=== PATIENT | female | born 1930 | race Asian ===

== ENCOUNTER 2017-07-05 01:30 | Emergency (ER) | payer MEDICARE, MEDICAID ==
[~2017-07-05] VITALS: Ht 149.9 cm; Wt 40.8 kg
[~2017-07-05 01:30] MED LIST: NKM; ZITHROMAX250 MG ORAL; [UNRECOGNIZED DRUG - REMARK] PO
[2017-07-05] MEDS ORDERED: FUROSEMIDE20 M1 ORAL (01:39)
[2017-07-05] MEDS ORDERED: AMLODIPINE BESYL5 MG ORAL (01:39)
[2017-07-05] MEDS ORDERED: METFORMIN HCL500 M1 ORAL (01:39)
[2017-07-05] MEDS ORDERED: Morphine Sulfate 4mg/ml Inj IVP ONE (01:45)
--- NOTE | 2017-07-05 01:50 | Emergency Room Report ---
History of Present Illness General Chief Complaint: Upper Extremity Injury Source: Family Member Present Illness HPI Is an 86-year-old Maori speaking woman with a history dementia. She was brought in with left wrist trauma. According to family they were asleep and when they heard her fell. It appeared that she try to get up to go the bathroom and fell. She complaining of left wrist pain. No head injury. There is deformity to the left wrist. Denies any other complaint. Allergies: Coded Allergies: AZITHROMYCIN (Verified Allergy, Severe, ANGIOEDEMA, FACIAL SWELLING, ) Patient History Past Medical History: see triage record, old chart reviewed, HTN Past Surgical History: other Pertinent Family History: none Social History: Denies: smoking Now: No Immunizations: other Reviewed Nursing Documentation: PMH: Agreed; PSxH: Agreed Nursing Documentation-PMH Hx Cardiac Problems: Yes Hx Hypertension: Yes Hx Diabetes: Yes Hx Cancer: No Hx Gastrointestinal Problems: No Hx Neurological Problems: No Review of Systems Eye: Denies: eye pain, blurred vision ENT: Denies: ear pain, nose congestion, throat swelling Respiratory: Denies: cough, shortness of breath Cardiovascular: Denies: chest pain, palpitations Gastrointestinal: Denies: abdominal pain, diarrhea, nausea, vomiting Musculoskeletal: Reports: joint pain; Denies: back pain Skin: Denies: rash Neurological: Denies: headache, numbness Endocrine: Denies: increased thirst, increased urine Hematologic/Lymphatic: Denies: easy bruising All Other Systems: negative except mentioned in HPI Physical Exam Vital Signs Date Time Temp Pulse Resp B/P (MAP) Pulse Ox O2 Delivery O2 Flow Rate FiO2 07/05/17 01:35 96.6 74 16 166/64 100 Room Air 96.6 vitals with high blood pressure Sp02 EP Interpretation: reviewed, normal General Appearance: well appearing, no apparent distress, alert Head: normocephalic, atraumatic Eyes: bilateral eye PERRL, bilateral eye EOMI ENT: hearing grossly normal, normal pharynx Neck: full range of motion, supple, no meningismus Respiratory: chest non-tender, lungs clear, normal breath sounds Cardiovascular #1: regular rate, rhythm, no murmur Gastrointestinal: normal bowel sounds, non tender, no mass, no organomegaly, no bruit, non-distended Musculoskeletal: back normal, gait/station normal, other - left wrist: Dinner fork deformity. Pulses normal. There is scabbing to the wrist. Family said that this is old. Patient been picking at her wound. Neurologic: alert Psychiatric: mood/affect normal Skin: warm/dry Procedures Splinting Splinting : Consent: Verbal Location: left wrist Hand-Made Type: plaster Splint: sugar-tong Pre-Proc Neuro Vasc Exam: normal Post-Proc Neuro Vasc Exam: normal Patient Tolerated: Well Complications: None Progress I did a hematoma block with 1% lidocaine without epinephrine. Injected 9 mL. I reduce the fracture. Patient tolerated procedure without a problem. Sugar tong was placed. Medical Decision Making Diagnostic Impression: Primary Impression: Distal radius fracture, left Qualified Codes: S52.532A - Colles' fracture of left radius, initial encounter for closed fracture ER Course Patient with a distal radius fracture. No open fracture. no syncope. We'll discharge home. Other X-Ray Diagnostic Results Other X-Ray Diagnostic Results #1: X-Ray ordered: left wrist x-rays # of Views/Limited Vs Complete: 3 View Indication: Pain EP Interpretation: Yes Interpretation: no dislocation, no soft tissue swelling, other - intra- articular distal radius frx with displacement. Impression: Other - distal radius frx Electronically Signed by: Eagle Fisher MD Other X-Ray Diagnostic Results #2: X-Ray ordered: left wrist x-rays, post reduction # of Views/Limited Vs Complete: 3 View Indication: Pain EP Interpretation: Yes Interpretation: no dislocation, no soft tissue swelling, other - better alignment. Impression: Other - Better alignment of distal radius frx Electronically Signed by: Eagle Fisher MD Last Vital Signs Date Time Temp Pulse Resp B/P (MAP) Pulse Ox O2 Delivery O2 Flow Rate FiO2 07/05/17 01:35 96.6 74 16 166/64 100 Room Air 96.6 Status: improved Disposition: HOME, SELF-CARE Condition: Stable Scripts Hydrocodone/Acetaminophen 5-325* (HYDROCODONE/ACETAMINOPHEN 5-325*) 1 Each Tablet 1 TAB ORAL Q6H PRN for For Pain, #20 TAB 0 Refills Prov: EAGLE FISHER M.D. 07/05/17 Additional Instructions: Follow up with your doctor in 2 days. Return if symptoms worsen. Elevate arm. Ice pack to area. EAGLE FISHER M.D. July 05, 2017 01:50
--- NOTE | 2017-07-05 02:32 | Diagnostic Imaging Report ---
EXAM: XR Left Wrist CLINICAL HISTORY: TRAUMA TECHNIQUE: X-ray left wrist. COMPARISON: No relevant prior studies available. FINDINGS/IMPRESSION: Fracture distal radius. Soft tissue swelling.
[2017-07-05 03:18] VITALS: BP 141/83
[2017-07-05] MEDS ORDERED: HYDROCODON-ACE1 EA15 ORAL (03:18)
[2017-07-05 03:30] VITALS: BP 141/83
--- NOTE | 2017-07-05 07:15 | Diagnostic Imaging Report ---
EXAM: XR Left Wrist Complete, 3 or More Views. CLINICAL HISTORY: PAIN TECHNIQUE: Frontal, lateral and oblique views of the left wrist. COMPARISON: 07/05/17 at 0139 hrs. FINDINGS: Overlying cast material markedly obscures bony detail. Again seen is an impacted, mildly displaced fracture of the distal radius. Alignment of fracture fragments is grossly unchanged when compared to prior exam one hour ago. IMPRESSION: As above.
== END 2017-07-05 03:30 | disposition home or self-care (01) ==
LOC: EMR 02:30
DX: S52.502A Unspecified fracture of the lower end of left radius, initial encounter for closed fracture (principal); W19.XXXA Unspecified fall, initial encounter; Y92.009 Unspecified place in unspecified non-institutional (private) residence as the place of occurrence of the external cause; I10 Essential (primary) hypertension; E11.9 Type 2 diabetes mellitus without complications; Z88.1 Allergy status to other antibiotic agents
CPT/HCPCS: 29125; 73100; 73110; 82962; 96374; 96375; 99283; J2270; J2405

== ENCOUNTER 2017-07-08 17:11 | Inpatient (IN) | payer MEDICAID, MEDICARE ==
[~2017-07-08] VITALS: Ht 157.5 cm; Wt 49.9 kg
[~2017-07-08 17:11] MED LIST changes: +AMLODIPINE BESYL5 MG ORAL; +FUROSEMIDE20 M1 ORAL; +HYDROCODON-ACE1 EA15 ORAL; +METFORMIN HCL500 M1 ORAL
[2017-07-08 17:28] VITALS: BP 152/83
[2017-07-08] MEDS ORDERED: Norco 5mg/325mg tab ORAL ONE (17:30)
--- NOTE | 2017-07-08 17:33 | Emergency Room Report ---
History of Present Illness General Chief Complaint: Multiple Trauma/Fall Source: Patient (Preston Chan) Present Illness HPI 86-year-old female patient presents ER brought in by ambulance complaining of right wrist deformity following trip and fall. Reports pain at site of injury. Denies hitting head or loss consciousness. Reports was seen in this ER previously for fall and left wrist injury few days ago. Reports cast on left wrist at this time, reports swelling of digits status post fall. Son reports was seen by orthopedist for left wrist injury and declined surgical correction at that time, was placed in new hard cast at that time. Denies fever, chest pain , SOB. (Preston Chan) Allergies: Coded Allergies: AZITHROMYCIN (Verified Allergy, Severe, ANGIOEDEMA, FACIAL SWELLING, ) Patient History Past Medical History: see triage record Reviewed Nursing Documentation: PMH: Agreed; PSxH: Agreed (Preston Chan) Nursing Documentation-PMH Past Medical History: No History, Except For Hx Hypertension: Yes Hx Diabetes: Yes Hx Cancer: No Hx Gastrointestinal Problems: No Hx Neurological Problems: No (Preston Chan) Review of Systems All Other Systems: negative except mentioned in HPI (Preston Chan) Physical Exam Vital Signs Date Time Temp Pulse Resp B/P (MAP) Pulse Ox O2 Delivery O2 Flow Rate FiO2 07/08/17 17:07 98.3 86 18 152/83 99 Room Air 98.2 Sp02 EP Interpretation: reviewed, normal General Appearance: well appearing, no apparent distress, alert, GCS 15, non- toxic Head: normocephalic, atraumatic Neck: full range of motion Respiratory: lungs clear, normal breath sounds, no rhonchi, no respiratory distress, no accessory muscle use, no wheezing, speaking full sentences Cardiovascular #1: regular rate, rhythm, no edema Cardiovascular #2: 2+ radial (R), 2+ radial (L) Musculoskeletal: back normal, digits/nails normal, gait/station normal, decreased range of motion, swelling - right wrist; left digits, other - deformity of right wrist, ecchymosis, edema; able to wiggle fingers bilaterally , NVI, tender Psychiatric: mood/affect normal Skin: other - ecchymosis (Preston Chan) Procedures Splinting Splinting : Consent: Verbal Location: Right wrist Pre-Made Type: velcro Hand-Made Type: Splint: volar Pre-Proc Neuro Vasc Exam: normal Post-Proc Neuro Vasc Exam: normal Patient Tolerated: Well Complications: None (Jarrell Gross DO) Joint Reduction Joint Reduction : Consent: Verbal Joint Reduction Site: wrist (R) Procedural Sedation: No Reduction Attempts: One Pre-Procedure NV Exam: Yes Post-Procedure NV Exam: Yes Post Joint Reduction Film: joint reduced Patient Tolerated: Well Complications: None Progress Patient had hematoma block performed after cleansing the wrist, total of 4 mL 1 % lidocaine was injected into the fracture site, we did have a drop back however there was no signs of blood patient tolerated that well. Reduction performed as above, essentially with traction backward with up and over technique we had appropriate reduction clinically (Jarrell Gross DO) Medical Decision Making PA Attestation Dr. Gross is my supervising Physician whom patient management has been discussed with. (Preston Chan P.A.) Medicare Attestation The history of Tom Reddy has been reviewed and management options for her have been examined and discussed by Jarrell Gross. I have personally examined and interviewed the patient. (Jarrell Gross DO) Diagnostic Impression: Primary Impression: Multiple injuries due to trauma Additional Impressions: Hyponatremia Radial fracture Hx of fracture of radius Fracture of ulnar styloid ER Course Pt. presents to the ED c/o right wrist pain and swelling of left fingers. Ddx considered but are not limited to fracture, sprain, strain, contusion, dislocation. Vital signs: are WNL, pt. is afebrile Ordered X-ray and pain medication. ER COURSE Provided with pain medication. An X-ray of the right wrist was ordered, results show fracture and dislocation of radius per the preliminary reading. An X-ray of the left wrist was ordered, results show no acute hand fracture, per the preliminary reading. An X-ray of the left hand was ordered, results show fracture of distal radius consistent with previous imaging, per the preliminary reading. Due to hand swelling, opened hard cast on the ulnar side to allow for reduction in swelling. Decreased swelling noted in patients fingers following release of cast. Reduction performed by Dr. Gross, see his procedure note. Volar Splint was applied to the right wrist and was checked afterwards by me showing good alignment and support with distal neurovascular functioning intact. Post reduction x-ray shows good alignment, fracture reduced. Reviewed labs and discussed patient with Dr. Gross patient will be admitted for bilateral wrist fracture and dehydration. Labs show hyponatremia. WBC shows no elevation in WBC CKMB WNL Troponin within limits of normal. CXR shows small LLL opacity, consistent with previous CXR, likely due to mild CHF. patient's son requesting patient to be discharged home into their care. Informed patient and family that due to bilateral wrist fractures and hyponatremia will admit patient. Not able to discharge patient home safely due to history of recent falls. Needs inpatient management for further diagnosis and treatment. Dr. Gross ordered normal saline. Patient to be admitted to Dr. Tyler. - Please note that this Emergency Department Report was dictated using [employer] dessert technology software, occasionally this can lead to erroneous entry secondary to interpretation by the dictation equipment. Labs Test 07/08/17 18:36 White Blood Count 6.8 K/UL (4.8-10.8) Red Blood Count 3.93 M/UL (4.20-5.40) Hemoglobin 12.0 G/DL (12.0-16.0) Hematocrit 35.1 % (37.0-47.0) Mean Corpuscular Volume 89 FL (80-99) Mean Corpuscular Hemoglobin 30.5 PG (27.0-31.0) Mean Corpuscular Hemoglobin Concent 34.1 G/DL (32.0-36.0) Red Cell Distribution Width 12.8 % (11.6-14.8) Platelet Count 250 K/UL (150-450) Mean Platelet Volume 5.4 FL (6.5-10.1) Neutrophils (%) (Auto) 84.2 % (45.0-75.0) Lymphocytes (%) (Auto) 7.8 % (20.0-45.0) Monocytes (%) (Auto) 6.5 % (1.0-10.0) Eosinophils (%) (Auto) 0.4 % (0.0-3.0) Basophils (%) (Auto) 1.1 % (0.0-2.0) Sodium Level 128 MMOL/L (136-145) Potassium Level 4.7 MMOL/L (3.5-5.1) Chloride Level 93 MMOL/L (98-107) Carbon Dioxide Level 26 MMOL/L (21-32) Anion Gap 9 mmol/L (5-15) Blood Urea Nitrogen 21 mg/dL (7-18) Creatinine 1.0 MG/DL (0.55-1.30) Estimat Glomerular Filtration Rate mL/min (>60) Glucose Level 156 MG/DL (74-106) Calcium Level 9.0 MG/DL (8.5-10.1) Total Bilirubin 0.6 MG/DL (0.2-1.0) Aspartate Amino Transf (AST/SGOT) 28 U/L (15-37) Alanine Aminotransferase (ALT/SGPT) 27 U/L (12-78) Alkaline Phosphatase 73 U/L (46-116) Total Creatine Kinase 234 U/L (26-308) Creatine Kinase MB 5.0 NG/ML (0.0-3.6) Creatine Kinase MB Relative Index 2.1 Troponin I 0.002 ng/mL (0.000-0.056) Total Protein 7.7 G/DL (6.4-8.2) Albumin 3.4 G/DL (3.4-5.0) Globulin 4.3 g/dL Albumin/Globulin Ratio 0.8 (1.0-2.7) (Preston Chan P.A.) EKG Diagnostic Results Rate: normal Rhythm: NSR ST Segments: no acute changes ASA given to the pt in ED: No PA Scribe Text Good Chan PA-C (Preston Chan P.A.) Rhythm Strip Diag. Results EP Interpretation: yes Rate: 73 Rhythm: NSR, no PVC's, no ectopy PA Scribe Text Good Chan PA-C (RocioPreston P.A.) Chest X-Ray Diagnostic Results Chest X-Ray Diagnostic Results : Chest X-Ray Ordered: Yes # of Views/Limited/Complete: 1 View Indication: Chest Pain EP Interpretation: Yes PA Xray: Interpretation reviewed, by supervising MD, and agrees with findings. Interpretation: no pneumothorax, other - LLL opacity Impression: No acute disease PA Scribe Text Good Chan PA-C (Preston Chan P.A.) Other X-Ray Diagnostic Results Other X-Ray Diagnostic Results #1: X-Ray ordered: right wrist # of Views/Limited Vs Complete: 3 View Indication: Pain EP Interpretation: Yes PA Xray: Interpretation reviewed, by supervising MD, and agrees with findings. Interpretation: other - radial fracture, volar dislocation, ulnar styloid fracture Impression: Other - distal radius fracture with volar displacement PA Scribe Text Good Chan PA-C Other X-Ray Diagnostic Results #2: X-Ray ordered: right wrist post reduction # of Views/Limited Vs Complete: 2 View Indication: Pain EP Interpretation: Yes PA Xray: Interpretation reviewed, by supervising MD, and agrees with findings. Impression: Other - post-reduction distal radius fracture, reduced, ulnar styloid fracture PA Scribe Text Good Chan PA-C Other X-Ray Diagnostic Results #3: X-Ray ordered: left hand # of Views/Limited Vs Complete: 3 View Indication: Swelling EP Interpretation: Yes PA Xray: Interpretation reviewed, by supervising MD, and agrees with findings. Interpretation: no dislocation, no fractures, other - soft tissue swelling, distal radius fracture visualized Impression: No acute disease PA Scribe Text Good Chan PA-C Other X-Ray Diagnostic Results #4: X-Ray ordered: left wrist # of Views/Limited Vs Complete: 2 View Indication: Swelling EP Interpretation: Yes PA Xray: Interpretation reviewed, by supervising MD, and agrees with findings. Interpretation: other - distal radius fracture, consistent with previous x- ray s/p reduction Impression: No acute disease - post-reduction fracture of distal radius PA Scribe Text Good Chan PA-C (Preston Chan P.AApril) Last Vital Signs Date Time Temp Pulse Resp B/P (MAP) Pulse Ox O2 Delivery O2 Flow Rate FiO2 07/08/17 17:07 98.3 86 18 152/83 99 Room Air 98.2 (Preston Chan P.A.) Disposition: ADMITTED INPATIENT Condition: Serious Preston Chan July 08, 2017 17:33 Jarrell Gross DO July 08, 2017 21:05
[2017-07-08] MEDS ORDERED: NKM (17:51)
[2017-07-08 19:04] LABS: BASOPHILS % (AUTO) 1.1 % (0.0-2.0); EOSINOPHILS % (AUTO) 0.4 % (0.0-3.0); HEMATOCRIT 35.1 % (37.0-47.0); LYMPHOCYTES % (AUTO) 7.8 % (20.0-45.0); MEAN CORPUSCULAR VOLUME 89 FL (80-99); MONOCYTES % (AUTO) 6.5 % (1.0-10.0); NEUTROPHILS % (AUTO) 84.2 % (45.0-75.0); PLATELET COUNT 250 K/UL (150-450); RED BLOOD COUNT 3.93 M/UL (4.20-5.40); RED CELL DISTRIBUTION WIDTH 12.8 % (11.6-14.8); WHITE BLOOD COUNT 6.8 K/UL (4.8-10.8)
[2017-07-08 19:20] LABS: ANION GAP 9 mmol/L (5-15); BLOOD UREA NITROGEN 21 mg/dL (7-18); CARBON DIOXIDE 26 MMOL/L (21-32); CHLORIDE 93 MMOL/L (98-107); POTASSIUM 4.7 MMOL/L (3.5-5.1); SODIUM 128 MMOL/L (136-145)
[2017-07-08] MEDS ORDERED: Lidocaine 1% Plain 30 ml INJ ONE (19:30)
[2017-07-08] MEDS ORDERED: Sodium Chloride 500ML 500 ML IV ONE (19:30)
[2017-07-08 19:35] LABS: ALANINE AMINOTRANSFERASE 27 U/L (12-78); ALBUMIN 3.4 G/DL (3.4-5.0); ALBUMIN/GLOBULIN RATIO 0.8 (1.0-2.7); ALKALINE PHOSPHATASE 73 U/L (46-116); ASPARTATE AMINO TRANSFERASE 28 U/L (15-37); BILIRUBIN,TOTAL 0.6 MG/DL (0.2-1.0); CREATINE KINASE 234 U/L (26-308)
--- NOTE | 2017-07-08 22:42 | History & Physical ---
History and Physical History & Physicial HISTORY OF PRESENT ILLNESS: 86-year-old female, who presented to the emergency room after a fall with wrist fracture. The patient was seen by ortho but refused to have intervention. The patient became increasingly weak over the past few years. Patient has a cast currently The patient now presents for admission and ortho evaluation PAST MEDICAL HISTORY: low TSH and T3 thryoid nodules pulmonary edema diabetes tooth infection with facial swelling atrial fibrillation anemia SOCIAL HISTORY: The patient is a nonsmoker and nondrinker. She lives with family. REVIEW OF SYSTEMS: Unobtainable at this time. PHYSICAL EXAMINATION: GENERAL: The patient is a well-developed and well-nourished female, who is comfortable. weak and confused VITAL SIGNS: Blood pressure 152/83 in the emergency room. Pulse rate 84. Oxygen saturation is 98% on room air. Temperature is 97.4 EYES: PEERL EOMI NECK: Supple. No adenopathy.carotids 2+ LUNGS: Fairly clear. No rhonchi. No wheezes. No stridor. CARDIAC: S1 and S2. Regular rate and rhythm. without MRG ABDOMEN: Soft and nontender. no distention EXTREMITIES: No cyanosis. No clubbing. No edema. wrist pain bilaterally with cast NEUROLOGIC: Grossly nonfocal. Laboratory Tests Test 07/08/17 18:36 White Blood Count 6.8 K/UL (4.8-10.8) Red Blood Count 3.93 M/UL (4.20-5.40) L Hemoglobin 12.0 G/DL (12.0-16.0) Hematocrit 35.1 % (37.0-47.0) L Mean Corpuscular Volume 89 FL (80-99) Mean Corpuscular Hemoglobin 30.5 PG (27.0-31.0) Mean Corpuscular Hemoglobin Concent 34.1 G/DL (32.0-36.0) Red Cell Distribution Width 12.8 % (11.6-14.8) Platelet Count 250 K/UL (150-450) Mean Platelet Volume 5.4 FL (6.5-10.1) L Neutrophils (%) (Auto) 84.2 % (45.0-75.0) H Lymphocytes (%) (Auto) 7.8 % (20.0-45.0) L Monocytes (%) (Auto) 6.5 % (1.0-10.0) Eosinophils (%) (Auto) 0.4 % (0.0-3.0) Basophils (%) (Auto) 1.1 % (0.0-2.0) Sodium Level 128 MMOL/L (136-145) L Potassium Level 4.7 MMOL/L (3.5-5.1) Chloride Level 93 MMOL/L (98-107) L Carbon Dioxide Level 26 MMOL/L (21-32) Anion Gap 9 mmol/L (5-15) Blood Urea Nitrogen 21 mg/dL (7-18) H Creatinine 1.0 MG/DL (0.55-1.30) Estimat Glomerular Filtration Rate mL/min (>60) Glucose Level 156 MG/DL (74-106) H Calcium Level 9.0 MG/DL (8.5-10.1) Total Bilirubin 0.6 MG/DL (0.2-1.0) Aspartate Amino Transf (AST/SGOT) 28 U/L (15-37) Alanine Aminotransferase (ALT/SGPT) 27 U/L (12-78) Alkaline Phosphatase 73 U/L (46-116) Total Creatine Kinase 234 U/L (26-308) Creatine Kinase MB 5.0 NG/ML (0.0-3.6) H Creatine Kinase MB Relative Index 2.1 Troponin I 0.002 ng/mL (0.000-0.056) Total Protein 7.7 G/DL (6.4-8.2) Albumin 3.4 G/DL (3.4-5.0) Globulin 4.3 g/dL Albumin/Globulin Ratio 0.8 (1.0-2.7) L IMPRESSION: 1. wrist fracture 2. s/p fall 3. confusion 4. Renal insufficiency. 5. prior sepsis 6. hyponatremia PLAN wrist brace ortho IV hydration monitor blood sugars PT evaluation impression, plan, and exam edited and reviewed in detail care discussed with RN. Santosh Tyler MD July 08, 2017 22:42
[2017-07-08] MEDS ORDERED: Norco 5mg/325mg tab ORAL PRN (22:45)
[2017-07-08 23:00] VITALS: BP 154/91
[2017-07-09] VITALS: BP 152/61
[2017-07-09 04:00] VITALS: BP 145/75
[2017-07-09] MEDS ORDERED: Morphine Sulfate 4mg/ml Inj IVP PRN ×2 (04:30→07:45)
[2017-07-09] MEDS: NovoLOG Insulin Flexpen SUBQ SCH ×4 (06:30→21:24)
[2017-07-09 07:43] LABS: BASOPHILS % (AUTO) 0.8 % (0.0-2.0); EOSINOPHILS % (AUTO) 0.9 % (0.0-3.0); HEMATOCRIT 30.3 % (37.0-47.0); HEMOGLOBIN 9.8 G/DL (12.0-16.0); LYMPHOCYTES % (AUTO) 12.5 % (20.0-45.0); MEAN CORPUSCULAR VOLUME 91 FL (80-99); MONOCYTES % (AUTO) 6.1 % (1.0-10.0); NEUTROPHILS % (AUTO) 79.6 % (45.0-75.0); PLATELET COUNT 226 K/UL (150-450); RED BLOOD COUNT 3.32 M/UL (4.20-5.40); RED CELL DISTRIBUTION WIDTH 13.1 % (11.6-14.8); WHITE BLOOD COUNT 5.5 K/UL (4.8-10.8)
[2017-07-09 08:00] VITALS: BP 137/59
[2017-07-09 08:16] LABS: ANION GAP 9 mmol/L (5-15); BLOOD UREA NITROGEN 17 mg/dL (7-18); CALCIUM 8.6 MG/DL (8.5-10.1); CARBON DIOXIDE 27 MMOL/L (21-32); CHLORIDE 98 MMOL/L (98-107); CREATININE 0.9 MG/DL (0.55-1.30); POTASSIUM 4.2 MMOL/L (3.5-5.1); SODIUM 134 MMOL/L (136-145)
--- NOTE | 2017-07-09 08:16 | Consultation ---
Consult Note Consult Note 86 yo female with hx of multiple falls admitted with rt wrist distal radius fx. had a fall last week and sustained a left wrist fx. she was seen in [facility] and opted for non-surgical tx. she is in a cast on the left side. rt wrist fx is displaced and pt is currently in a splint. pt and family do not want surgical intervention. they would like a cast applied and non-surgical tx. it was discussed with pt, her daughter, and son the risks and potential complications with proceeding non-operatively. pt is right handed and understands that she may have chronic pain, deformity, reduced ROM, and inability to perform ADLs. however family assures that they care for her and will provide the appropriate daily care that she will require. recommendations for rt wrist ORIF were again voiced to pt and family and they understand what the recommendations are. We will respect their wishes and proceed non-operatively. Pt can eat. Will ask for cast application to be done prior to d/c. Allyn Torres July 09, 2017 08:16
[2017-07-09] MEDS ORDERED: Norco 5mg/325mg tab ORAL PRN (08:23)
--- NOTE | 2017-07-09 08:46 | Diagnostic Imaging Report ---
Clinical Indication:Pain, status post fall Technique: 3 views of the right wrist Comparison: None Findings: There is a fracture of the distal radius. This is displaced posteriorly by over one bone width, comminuted, posteriorly angulated, and overriding. There is probably an associated fracture of the ulnar styloid, which is likewise significantly displaced. The fracture appears to involve the articular surface posteriorly. The bones are osteoporotic. No associated carpal fracture demonstrated. The joint spaces are preserved Impression: Positive for distal radial and ulnar styloid fracture as described Review of the electronic medical record indicates this was recognized by the treating ED physician
--- NOTE | 2017-07-09 08:50 | Diagnostic Imaging Report ---
Clinical Indication:Pain, status post fall Technique: 3 views of the left wrist Comparison: Earlier the same day Findings: Interim closed reduction of previously demonstrated distal radial fracture improved anatomic alignment. Overlying plaster cast obscures bony detail. On the current exam, the ulnar styloid appears in normal position, may have been reduced as well Impression: Post reduction left wrist, as described
--- NOTE | 2017-07-09 08:52 | Diagnostic Imaging Report ---
Indication: Chest pain, status post fall Technique: One view of the chest Comparison: 04/27/2013 Findings: Healed fracture deformities of the left sixth through eighth ribs are noted, not definitely evident previously. Lungs and pleural spaces are clear. There is a calcified granuloma in the right midlung. There is calcite granulomas aortopulmonary window lymph node again demonstrated. The heart is upper limits of normal in size Impression: No acute process. Findings as noted
[2017-07-09] MEDS: metFORMIN 500mg tab ORAL SCH ×2 (09:21→17:07)
[2017-07-09] MEDS: Heparin 5000 units/ml inj SUBQ SCH ×2 (09:22→20:52)
[2017-07-09] MEDS: Morphine Sulfate 4mg/ml Inj IVP PRN ×2 (09:44→20:50)
--- NOTE | 2017-07-09 10:09 | Diagnostic Imaging Report ---
Indication: Pain, status post fall Technique: 3 views left hand Comparison: none Findings: Overlying plaster splint obscures bony detail. No definite acute carpal or hand fracture demonstrated. Joint spaces are preserved. Bony alignment is normal. Distal radial fracture, previously described, is noted Impression: Somewhat limited exam. Positive for distal radial fracture. No definite more distal fracture demonstrated
--- NOTE | 2017-07-09 10:50 | Diagnostic Imaging Report ---
Clinical Indication:Pain, status post reduction Technique: 2 views of the right wrist Comparison: None Findings: There is been interim improvement of anatomic alignment of the previously demonstrated right distal radial fracture. The ulnar styloid fragment also appears to have been reduced and is in better alignment. There still remains approximately one half bone width of posterior displacement, some posterior angulation, and some impaction. A splint has been placed Impression: Improved alignment of previously demonstrated right distal radial fracture, status post reduction
[2017-07-09 12:00] VITALS: BP 131/60
--- NOTE | 2017-07-09 13:15 | Consultation ---
DATE OF CONSULTATION: ORTHOPEDIC CONSULTATION CONSULTING PHYSICIAN: Dale Amaya M.D. REFERRING PHYSICIAN: Santosh Tyler M.D. HISTORY OF PRESENT ILLNESS: The patient is a pleasant 86-year-old female, who presented to the emergency room with a right-sided wrist fracture after a fall. She has been seen by ortho for consideration of surgical intervention. The patient had a fall last week sustaining a left wrist fracture for which she was seen in [facility]. At that time, the patient and family again opted for nonoperative treatment and she is in a cast on left upper extremity and they would like to proceed with nonoperative treatment for the right wrist. PAST MEDICAL HISTORY: Thyroid nodule, pulmonary edema, diabetes, atrial fibrillation, and chronic anemia. PAST SURGICAL HISTORY: None. CURRENT MEDICATIONS: Please see chart. ALLERGIES: Azithromycin. SOCIAL HISTORY: The patient is mostly independent with her activities although she is encouraged by her family to use a walker. The patient's daughter and son indicates that she does not use a walker and she is getting unsteady on her feet, but she does live with her children and they provide daily care for her. PHYSICAL EXAMINATION: GENERAL: She is a very pleasant woman. She is alert. She is cooperative with examination. EXTREMITIES: Her left upper extremity is in a well-padded thumb spica cast. The right upper extremity is in a well-padded splint. She has swelling to the fingers and ecchymosis but she is able to move her fingers. She has intact sensation. She has some bruising to the upper arm as well. DIAGNOSTIC DATA: X-rays are reviewed that were taken here at [place] and there is a displaced distal radius fracture with some impaction and comminution. IMPRESSION: 1. Right wrist distal radius fracture, displaced and comminuted in an 86-year-old patient who would like to proceed nonoperatively. 2. Left wrist fracture last week, seen in [facility] and opted for nonoperative treatment, currently in a cast. 3. History of multiple falls. DISCUSSION: At this time, I had a long and maria del carmen discussion with the patient and her family and I reiterated to them several times what our recommendations are. Recommendations are to go forward with right wrist open reduction internal fixation with plate and screws to stabilize this fracture and allow for reasonable alignment so this goes on to heal well for her. The patient is right-handed and she understands that if she does not have a surgery, this fracture will not heal well, the alignment will not be anatomic and she will likely have deformity, decreased range of motion as well as possible chronic pain issues that may make it difficult for her to perform her activities of daily living. She understands that although she does not want have a surgery. She and her family indicate that the family will take care of her and that they will provide her with the care that she needs and assist her with activities of daily living. She would like to have a cast on her wrist only. She does not want to have a surgery. Again this was discussed with them and they do understand what our recommendations are. However, they are opting against recommended treatment and opting against surgical treatment fulling knowing and understanding the long-term poor prognosis that comes with non-surgical treatment. At this point, we will ask that a short -arm cast be placed on this patient prior to her discharge and once she is stable from medical standpoint she can be discharged out to the care of her family. She will likely require the cast for approximately six weeks and we will defer that to her MD in [facility]. However, again we anticipate poor results in this case given the family's desire for nonsurgical treatment. This is all discussed with family and again they verbalized understanding in this matter. We will respect their wishes in this case. Thank you for allowing me to participate in the care of this patient. If there are any further questions or concerns, please do not hesitate to contact me. Dale Amaya M.D. Dany Claderon DR: MIR JOB#: [id number] CC: NIRMALA
[2017-07-09 16:00] VITALS: BP 135/60
--- NOTE | 2017-07-09 18:05 | General Progress Note ---
Assessment/Plan Assessment/Plan IMPRESSION: 1. wrist fracture 2. s/p fall 3. confusion 4. Renal insufficiency. 5. prior sepsis 6. hyponatremia PLAN wrist brace in place ortho IV hydration monitor blood sugars and comment PT evaluation speech evaluation monitor sodium levels impression, plan, and exam edited and reviewed in detail care discussed with RN. Subjective Allergies: Coded Allergies: AZITHROMYCIN (Verified Allergy, Severe, ANGIOEDEMA, FACIAL SWELLING, ) Subjective care noted family does not want surgery ortho noted Objective Last 24 Hour Vital Signs Date Time Temp Pulse Resp B/P (MAP) Pulse Ox O2 Delivery O2 Flow Rate FiO2 07/09/17 16:00 98.0 71 18 135/60 97 Room Air 98.0 07/09/17 12:00 98.0 74 18 131/60 95 Room Air 98.0 07/09/17 09:21 86 137/59 07/09/17 08:00 98.9 86 18 137/59 96 Room Air 98.9 07/09/17 04:00 97.2 88 18 145/75 95 97.2 07/09/17 00:00 97.7 66 18 152/61 99 97.7 07/08/17 23:00 98.2 71 18 154/91 97 Room Air 98.2 07/08/17 23:00 98.2 71 18 154/91 97 Room Air 208.8 Intake and Output 07/08/17 07/09/17 19:00 07:00 Intake Total 400 ml Balance 400 ml Intake IV Total 400 ml # Voids 1 Laboratory Tests 07/08/17 18:36: White Blood Count 6.8, Red Blood Count 3.93L, Hemoglobin 12.0, Hematocrit 35.1L , Mean Corpuscular Volume 89, Mean Corpuscular Hemoglobin 30.5, Mean Corpuscular Hemoglobin Concent 34.1, Red Cell Distribution Width 12.8, Platelet Count 250, Mean Platelet Volume 5.4L, Neutrophils (%) (Auto) 84.2H, Lymphocytes (%) (Auto) 7.8L, Monocytes (%) (Auto) 6.5, Eosinophils (%) (Auto) 0.4, Basophils (%) (Auto) 1.1, Sodium Level 128L, Potassium Level 4.7, Chloride Level 93L, Carbon Dioxide Level 26, Anion Gap 9, Blood Urea Nitrogen 21H, Creatinine 1.0, Estimat Glomerular Filtration Rate , Glucose Level 156H, Calcium Level 9.0, Total Bilirubin 0.6, Aspartate Amino Transf (AST/SGOT) 28, Alanine Aminotransferase (ALT/SGPT) 27, Alkaline Phosphatase 73, Total Creatine Kinase 234, Creatine Kinase MB 5.0H, Creatine Kinase MB Relative Index 2.1, Troponin I 0.002, Total Protein 7.7, Albumin 3.4, Globulin 4.3, Albumin/ Globulin Ratio 0.8L 07/09/17 06:00: White Blood Count 5.5, Red Blood Count 3.32L, Hemoglobin 9.8L, Hematocrit 30.3L , Mean Corpuscular Volume 91, Mean Corpuscular Hemoglobin 29.6, Mean Corpuscular Hemoglobin Concent 32.4, Red Cell Distribution Width 13.1, Platelet Count 226, Mean Platelet Volume 5.3L, Neutrophils (%) (Auto) 79.6H, Lymphocytes (%) (Auto) 12.5L, Monocytes (%) (Auto) 6.1, Eosinophils (%) (Auto) 0.9, Basophils (%) (Auto) 0.8, Sodium Level 134L, Potassium Level 4.2, Chloride Level 98, Carbon Dioxide Level 27, Anion Gap 9, Blood Urea Nitrogen 17, Creatinine 0.9, Estimat Glomerular Filtration Rate , Glucose Level 94, Calcium Level 8.6 Height (Feet): 5 Height (Inches): 2.00 Weight (Pounds): 120 Objective WDWN NAD clear breath sounds bilaterally without rhonchi or wheeze [id number] without MRG NABS nontender no HSM no CCE nonfocal and confused bilateral splints in place Santosh Tyler MD July 09, 2017 18:05
[2017-07-09 20:00] VITALS: BP 160/61
[2017-07-10] VITALS: BP 140/56
[2017-07-10 04:00] VITALS: BP 132/66
[2017-07-10] MEDS: Morphine Sulfate 4mg/ml Inj IVP PRN ×2 (05:26→09:40)
[2017-07-10] MEDS: NovoLOG Insulin Flexpen SUBQ SCH ×2 (06:30→11:30)
[2017-07-10 08:00] VITALS: BP 158/73
--- NOTE | 2017-07-10 08:54 | General Progress Note ---
Assessment/Plan Assessment/Plan IMPRESSION: 1. wrist fracture 2. s/p fall 3. confusion 4. Renal insufficiency. 5. prior sepsis 6. hyponatremia PLAN wrist brace in place ortho noted IV hydration and may dc monitor blood sugars and comment PT evaluation and intervention speech evaluation dc planning impression, plan, and exam edited and reviewed in detail care discussed with RN. Subjective Allergies: Coded Allergies: AZITHROMYCIN (Verified Allergy, Severe, ANGIOEDEMA, FACIAL SWELLING, ) Subjective care noted family does not want surgery ortho noted PT noted Objective Last 24 Hour Vital Signs Date Time Temp Pulse Resp B/P (MAP) Pulse Ox O2 Delivery O2 Flow Rate FiO2 07/10/17 04:00 98.2 72 20 132/66 98 Room Air 98.2 07/10/17 00:00 98.6 89 20 140/56 94 Room Air 98.6 07/09/17 20:00 98.0 75 20 160/61 97 Room Air 98.0 07/09/17 16:00 98.0 71 18 135/60 97 Room Air 98.0 07/09/17 12:00 98.0 74 18 131/60 95 Room Air 98.0 07/09/17 09:21 86 137/59 Intake and Output 07/09/17 07/10/17 19:00 07:00 Intake Total 1400 ml 1450 ml Balance 1400 ml 1450 ml Intake Oral 600 ml 250 ml IV Total 800 ml 1200 ml # Voids 3 3 # Bowel Movements 2 Height (Feet): 5 Height (Inches): 2.00 Weight (Pounds): 110 Objective WDWN NAD clear breath sounds bilaterally without rhonchi or wheeze [id number] without MRG NABS nontender no HSM no CCE nonfocal and confused bilateral splints in place Santosh Tyler MD July 10, 2017 08:54
[2017-07-10] MEDS: Heparin 5000 units/ml inj SUBQ SCH (09:19)
[2017-07-10] MEDS: metFORMIN 500mg tab ORAL SCH (09:21)
[2017-07-10 12:00] VITALS: BP 136/80
--- NOTE | 2017-07-10 12:45 | Cardiology Report ---
APPROVED REPORT EKG Measurement Heart [id number] Normal sinus rhythm Low voltage QRS Possible Anterolateral infarct, age undetermined Abnormal ECG
--- NOTE | 2017-07-13 12:14 | Discharge Summary ---
Discharge Summary Hospital Course Date of Admission July 08, 2017 at 18:30 Date of Discharge July 10, 2017 at 14:15 Admitting Diagnosis multiple falls, dehydration HPI Tom Reddy is a 86 year old female who was admitted on July 08, 2017 at 18:30 for Multiple Falls,Dehydration Hospital Course dc summary #[id number] Discharge Medications Continued Medications: Amlodipine Besylate* (Amlodipine Besylate*) 5 Mg Tablet 5 MG ORAL DAILY, TAB (This prescription has been renewed) Furosemide* (Lasix*) 20 Mg Tablet 20 MG ORAL DAILY, TAB (This prescription has been renewed) Hydrocodone/Acetaminophen 5-325* (Hydrocodone/Acetaminophen 5-325*) 1 Each Tablet 1 TAB ORAL Q6H PRN for For Pain, #20 TAB 0 Refills Metformin Hcl* (Metformin Hcl*) 500 Mg Tablet 500 MG ORAL TWICE A DAY, TAB (This prescription has been renewed) Discharge Condition Upon Discharge: stable Discharge Disposition Patient was discharged to Home with Home Health(06) Discharge Instructions Discharge Instructions Special Instructions I have been assigned to complete a D/C Summary on this account. I was not involved in the patient management Betty Catherine NP July 13, 2017 12:14
--- NOTE | 2017-07-13 20:45 | Discharge Summary 2 SIG ---
DATE OF ADMISSION: 07/08/2017 DATE OF DISCHARGE: 07/10/2017 REASON FOR ADMISSION: 86-year-old female with past medical history of diabetes, hypertension, and multiple falls, was brought to emergency department for complaining of right wrist deformity following her trip and fall. The patient denied hitting her head or losing consciousness. The patient was seen prior in the emergency department for fall and left wrist injury few days ago. The patient was with a cast on the left wrist. Upon evaluation, vital signs were stable, except blood pressure was slightly elevated - 152/83. X-ray of the right wrist revealed distal radial and ulnar styloid fracture. X-ray of the left wrist revealed distal radial fracture in plaster grossly unchanged from 07/05/2017. when the patient was initially seen due to the prior fall and undergone closed reduction with placement of splint. X-ray of the right wrist after placement revealed improved alignment of previously demonstrated right distal radial fracture ,status post reduction. Chest x-ray revealed no acute cardiopulmonary process. Sodium 128 , BUN 21, creatinine 1.0, and glucose 156. No leukocytosis. In the emergency department, the patient undergone placement of the right wrist splint with closed reduction. The patient was admitted with diagnoses of status post fall, hyponatremia, right wrist distal radial and ulnar styloid fracture, left distal radius fracture, status post reduction, and renal insufficiency. LABORER LIVESTOCK: Dale Amaya M.D., orthopedic surgeon. HOSPITAL COURSE: The patient was admitted. The patient was started on the IV hydration. Orthopedic surgery consult was requested. Orthopedic surgeon seen and evaluated the patient and subsequently recommended right wrist open reduction and internal fixation with plate and screws to stabilize the fracture and allow for reasonable alignment. However, family and the patient declined surgical intervention. The patient only requested cast on her wrist. Discussion was held again by the surgeon for patient and family to understand the recommendations. However, family continued to opt against surgical treatment fully knowing and understanding the long-term poor prognosis that comes with nonsurgical treatment. Patient with splint, s/p closed reduction. X ray with improved alignment. Family requested discharge home . Family opted to have short arm cast as recommended by ortho surgeon, be placed at primary care provider clinic. Family declined SNF placement. signal worker helper discussed with son further plans of care. Patient will have 24 hour supervision since family will split time share for patient care to maintain this schedule. Pain management was addressed. Pain was controlled. DVT prophylaxis provided. The patient was working with physical therapist. Swallow evaluation revealed dysphagia and aspiration risk. Diet was downgraded as per speech therapist recommendation. Strict aspiration reflux precautions were maintained. Family was educated on strict aspiration precaution as well as fall precaution. Blood pressure was managed with calcium channel rosa and remained stable. Blood sugar was managed with metformin and sliding scale of insulin as needed. Bowel regimen instituted. The patient was on the IV fluids. Renal parameters and electrolytes were closely monitored. Electrolytes were corrected as needed. Nephrotoxics were avoided. Sodium from initial 128 up to 134. Hyponatremia was likely due to mild dehydration. BUN from 21 down to 17. Creatinine 0.9. The patient was stable for discharge home with outpatient follow up with the primary care provider. DISCHARGE MEDICATIONS: See medication reconciliation list. DISCHARGE DIAGNOSES: 1. Status post fall with history of multiple falls. 2. Right wrist distal radius and ulnar styloid fracture. 3. Status post closed reduction. 4. Recent left distal radius fracture secondary to fall, status post reduction. 5. Hyponatremia, resolved. 6. Renal insufficiency, resolved. DISCHARGE INSTRUCTIONS: The patient was discharged home with home health services. The patient to follow up with the primary care provider at clinic for short arm cast. Anticipate cast for six weeks. Fall precautions were discussed. Family was educated on strict aspiration precaution as well as fall precaution. Santosh Tyler M.D. I have been assigned to dictate discharge summary on this account and I was not involved in the patient's management. Betty Catherine (Vanchtein) NAlfredo DR: JENNIFER JOB#: [id number] CC: NIRMALA
== END 2017-07-10 14:15 | disposition home health service (06) | DRG 342 ==
LOC: EDBD 17:11 → EDSEX 17:11 → EMR 17:50 → 4E 18:30 → EDBEDREQ 19:32 → 4E 07-09 10:17
PROC: 0PSHXZZ Reposition Right Radius, External Approach (ICD-10-PCS; principal; 2017-07-08)
PROC: 2W3CX1Z Immobilization of Right Lower Arm using Splint (ICD-10-PCS; 2017-07-08)
DX: S52.501A Unspecified fracture of the lower end of right radius, initial encounter for closed fracture (principal); D64.9 Anemia, unspecified; E11.9 Type 2 diabetes mellitus without complications; E87.1 Hypo-osmolality and hyponatremia; N28.9 Disorder of kidney and ureter, unspecified; R41.0 Disorientation, unspecified; W18.30XA Fall on same level, unspecified, initial encounter; Y92.9 Unspecified place or not applicable
CPT/HCPCS: 36415; 71045; 80048; 80053; 82550; 82553; 82962; 84484; 85025; 93005; 99285; J1815